=== PATIENT | male | born 1935 | race Caucasian/White ===

== ENCOUNTER 2016-11-22 15:29 | Emergency (ER) | payer MEDICARE ==
[~2016-11-22 15:29] MED LIST: ADVAIR 25028 BLISTE1 PO; ALDACTONE25 M1 PO; ASPIRIN325 M3 PO; COREG25 M1 PO; EFFEXOR XR75 M1 PO; ENALAPRIL MALEA20 M1 PO; FLUTICASONE PRO16 G1; KLOR-CON M2020 ME1 PO; LASIX40 M1 PO; MAGNESIUM OXID400 M1 PO; OMEPRAZOLE20 M3 PO; REQUIP PO; SIMVASTATIN20 M1 PO; SYNTHROID75 MC1 PO
[2016-11-22] MEDS ORDERED: CIPRO500 M2 PO (15:39)
[2016-11-22] MEDS ORDERED: SILVADENE20 G1 TP (15:40)
[2016-11-22] MEDS ORDERED: XALATAN2.5 M1 EACH EYE (15:41)
[2016-11-22 16:03] LABS: BASO % 0.9 % (0-2); BASO ABSOLUTE COUNT 0.1 tho/cmm (0.0-0.2); EOSINOPHIL ABSOLUTE COUNT 0.2 tho/cmm (0.0-0.7); HCT-HEMATOCRIT 35.1 % (36.0-53.5); LYMPH % 13.9 % (20-45); LYMPH ABSOLUTE COUNT 0.9 tho/cmm (0.8-4.5); MCHC MEAN CORPUSCULAR HGB CONC 34.2 % (32.0-36.0); MCV (MEAN CELL VOLUME) 96.4 fl (82.0-96.0); MEAN PLATELET VOLUME 8.8 cmc (9.4-12.4); MONO % 13.9 % (0-12); MONOCYTE ABSOLUTE COUNT 0.9 tho/cmm (0.0-1.2); NEUTROPHIL ABSOLUTE COUNT 4.5 tho/cmm (1.6-8.0); NEUTROPHIL-AUTOMATED 4.5 tho/cmm (1.6-8.0); NEUTROPHILS % 68.3 % (40-80); PLATELET COUNT 359 tho/cmm (150-450); RED BLOOD COUNT 3.64 mil/cmm (4.40-5.70); WHITE BLOOD COUNT 6.6 tho/cmm (4.0-10.0)
[2016-11-22] MEDS ORDERED: FLOMAX0.4 M1 PO (16:26)
[2016-11-22 16:34] LABS: URINE BILIRUBIN NEGATIVE (NEG); URINE BLOOD NEGATIVE (NEG); URINE GLUCOSE (UA) NEGATIVE (NEG); URINE KETONE NEGATIVE (NEG); URINE LEUKOCYTE ESTERASE NEGATIVE (NEG); URINE NITRITE NEGATIVE (NEG); URINE PH 6.5 (5.0-8.0); URINE PROTEIN NEGATIVE (NEG)
[2016-11-22 16:36] LABS: ANION GAP 13 mmol/L (0-20); BLOOD UREA NITROGEN 32 mg/dl (6-24); CALCIUM 9.2 mg/dl (8.5-10.5); CARBON DIOXIDE-VENOUS 28 mmol/L (22-32); CHLORIDE 94 mmol/l (96-110); CREATININE 1.78 mg/dl (0.60-1.30); GLUCOSE 105 mg/dL (70-110); POTASSIUM 4.9 mmol/L (3.7-5.1); SODIUM 130 mmol/L (135-145); eGFR VALUE FOR BLACK 41 mL/Min
[2016-11-22 16:36] LABS: URINE APPEARANCE CLOUDY; URINE COLOR YELLOW
== END 2016-11-22 17:42 ==
LOC: EDMED 15:29
PROVIDERS: Emergency Medicine
DX: I95.9 Hypotension, unspecified (principal); E86.0 Dehydration; R55 Syncope and collapse; I50.9 Heart failure, unspecified; Z79.82 Long term (current) use of aspirin; Z79.899 Other long term (current) drug therapy
CPT/HCPCS: J7030